=== PATIENT | female | born 1965 | race Caucasian/White ===

== ENCOUNTER → 2016-11-30 | Outpatient (CLI) | payer BC | END | disposition home or self-care (01) | LOC: C.PAPS 08:41 | PROVIDERS: ATTEND Physician Assistant | DX: Z01.419 Encounter for gynecological examination (general) (routine) without abnormal findings (principal); Z11.51 Encounter for screening for human papillomavirus (HPV) ==

== ENCOUNTER → 2017-04-02 | Outpatient (CLI) | payer OTHER ==
--- NOTE | 2017-04-03 07:42 | MAMMOGRAPHY REPORT ---
BILATERAL DIGITAL SCREENING MAMMOGRAM TOMOSYNTHESIS WITH CAD: 04/02/2017 CLINICAL HISTORY: Routine screening. Patient has no complaints. TECHNIQUE: Breast tomosynthesis in addition to standard 2D mammography was performed. Current study was also evaluated with a Computer Aided Detection (CAD) system. COMPARISON: Comparison is made to exams dated: 03/30/2016 mammogram - [facility], 06/08/2014 mammogram, 09/09/2013 mammogram, 09/09/2012 mammogram, 09/08/2011 mammogram, and 08/16/2010 [facility]. BREAST COMPOSITION: There are scattered areas of fibroglandular density in both breasts. FINDINGS: There is expected architectural distortion in the approximate 9:00 posterior left breast, denoting the site of prior lumpectomy. There is skin irregularity of the left breast. There are new calcifications anterior to the surgical site for which additional spot magnification views are recom mended. No other suspicious mass, architectural distortion or cluster of microcalcifications is seen bilshailesha dannie. IMPRESSION: ACR BI-RADS CATEGORY 0: INCOMPLETE EVALUATION: NEED ADDITIONAL IMAGING EVALUATION The new calcifications anterior to the surgical site in the left breast need additional evaluation. The patient will be called to schedule an appointment. Approximately 10% of breast cancers are not detected with mammography. A negative mammographic report should not delay biopsy if a clinically suggestive mass is present. Trinity Cifuentes M.D. ay/:04/02/2017 15:55:31 Coin Rolling Machine Operator: Zora BELTRAN([place])(Shira)(JEAN), [facility] letter sent: Addl Imaging 0 BI-RADS Code: ACR BI-RADS Category 0: Incomplete Evaluation: Need Additional Imaging Evaluation
== END | disposition home or self-care (01) ==
LOC: C.MAMM 14:53
PROVIDERS: ATTEND Physician Assistant Medical
DX: Z12.31 Encounter for screening mammogram for malignant neoplasm of breast (principal); R92.0 Mammographic microcalcification found on diagnostic imaging of breast

== ENCOUNTER → 2017-04-09 | Outpatient (CLI) | payer OTHER ==
--- NOTE | 2017-04-09 14:46 | MAMMOGRAPHY REPORT ---
UNILATERAL LEFT DIGITAL DIAGNOSTIC MAMMOGRAM: 04/09/2017 CLINICAL HISTORY: 52-year-old woman with a personal history of left breast cancer status post breast conservation treatment, called back from recent screening mammogram for new calcifications near the s urgical site in the left breast. TECHNIQUE: Spot magnification left CC and ML views were obtained. COMPARISON: Comparison is made to exams dated: 04/02/2017 mammogram, 03/30/2016 mammogram - [facility], 06/08/2014 ultrasound, 06/08/2014 mammogram, 09/09/2013 mammogram, and 09/09/2012 m ammogram - [facility]. BREAST COMPOSITION: There are scattered areas of fibroglandular density in the left breast. FINDINGS: There are a few round coarse benign calcifications and somewhat coarse rodlike calcificatio ns anterior to the surgical site in the upper inner middle one third of the left breast. The linear calcifications are new compared to prior mammograms but have a dystrophic appearance given that the m ost anterior calcification is thick and rodlike and has a benign appearance. However, given the inte rval change, a short interval follow-up left diagnostic mammogram including spot magnification views is recommended to ensure stability and/or coarsening in 6 months. No other new calcifications, devel oping mass, asymmetry or area of distortion is identified in the visualized left breast. IMPRESSION: ACR-BI-RADS CATEGORY 3: PROBABLY BENIGN The new rodlike calcifications anterior to the surgical site in the upper inner middle one third of t he left breast are most likely dystrophic in nature, as they have a somewhat coarse appearance. Jimenez pedrito, given the interval development, a short interval follow-up left diagnostic mammogram including s pot magnification views is recommended to ensure stability and/or coarsening in 6 month. These results and recommendations were discussed with the patient at the time of the exam. Approximately 10% of breast cancers are not detected with mammography. A negative mammographic report should not delay biopsy if a clinically suggestive mass is present. Trinity Cifuentes M.D. ay/:04/09/2017 12:43:19 Production Team Advisor: Bita BELTRAN([place])(M), [facility] letter sent: Follow Up Recommended 3 BI-RADS Code: ACR-BI-RADS Category 3: Probably Benign
== END | disposition home or self-care (01) ==
LOC: C.MAMM 11:19
PROVIDERS: ATTEND Physician Assistant Medical
DX: R92.0 Mammographic microcalcification found on diagnostic imaging of breast (principal)

== ENCOUNTER → 2017-06-28 | Outpatient (CLI) | payer OTHER ==
--- NOTE | 2017-06-28 14:01 | DIAGNOSTIC IMAGING REPORT ---
CHEST 2 VIEWS ROUTINE CLINICAL HISTORY: [id number] COMPARISON STUDY: No previous studies for comparison. FINDINGS: The cardiac and mediastinal contours are normal. There is no evidence of focal pulmonary consolidation. There is no evidence of failure. No pleural effusions are visualized.[ IMPRESSION: No active disease in the chest. Electronically signed by: Too Keller M.D. 06/28/2017 2:00 PM Dictated Date/Time: 06/28/2017 1:59 PM
== END | disposition home or self-care (01) ==
LOC: C.RADBC 13:46
PROVIDERS: ATTEND Nurse Practitioner Adult Health
DX: R05 Cough (principal)